=== PATIENT | female | born 1940 | race Caucasian/White ===

== ENCOUNTER → 2021-11-01 | Outpatient (CLI) | payer MEDICARE ==
[~2021-11-01] VITALS: Ht 152.4 cm; Wt 72.6 kg
[2021-11-01 09:21] LABS: BASOPHILS % (AUTO) 0.5 % (0.0-5.0); EOSINOPHILS % (AUTO) 2.1 % (0.0-8.0); HEMATOCRIT 41.4 % (36-48); LYMPHOCYTES % (AUTO) 14.8 % (21.0-51.0); MEAN CORPUSCULAR HEMOGLOBIN 27.9 pg (27.0-33.0); MEAN CORPUSCULAR HGB CONC 30.9 g/dL (32.0-36.0); MEAN CORPUSCULAR VOLUME 90.2 fL (79-99); MONOCYTES % (AUTO) 17.1 % (3.0-13.0); NEUTROPHILS % (AUTO) 63.4 % (40.0-77.0); PLATELET COUNT (AUTO) 392 K/uL (130-400); RED BLOOD CELL COUNT(AUTO) 4.59 MIL/uL (4.00-5.50); RED CELL DISTRIBUTION WIDTH 15.3 % (11.0-15.5); WHITE BLOOD COUNT (AUTO) 6.5 K/uL (4.8-10.8)
[2021-11-01 09:30] LABS: CREATININE 1.6 mg/dL (0.5-1.5); POTASSIUM 4.8 mmol/L (3.5-5.1)
[2021-11-01 09:34] LABS: INR 0.93 (0.85-1.15); PROTHROMBIN TIME 9.7 SEC (9.6-11.6)
[2021-11-01 10:06] LABS: B-TYPE NATRIURETIC PEPTIDE 60 pg/mL (0-100)
[2021-11-01 10:26] LABS: APPEARANCE,URINE CLEAR (CLEAR); BILIRUBIN,URINE NEGATIVE (NEGATIVE); COLOR,URINE YELLOW (YELLOW); GLUCOSE, URINE (UA) NEGATIVE (NEGATIVE); KETONES,URINE NEGATIVE (NEGATIVE); LEUKOCYTE ESTERASE ,URINE SMALL (NEGATIVE); NITRATE,URINE POSITIVE (NEGATIVE); OCCULT BLOOD,URINE NEGATIVE (NEGATIVE); PH,URINE 5.5 (5.0-8.0); PROTEIN,URINE NEGATIVE (NEGATIVE); UROBILINOGEN,URINE 0.2 mg/dL (0.2-1.0)
[2021-11-01 10:53] LABS: RBC,URINE None Seen /HPF (0-1); WBC,URINE 26-50 /HPF (0-1)
[2021-11-01 10:54] LABS: BACTERIA,URINE Moderate /HPF (None Seen)
[2021-11-01 15:44] VITALS: BP 137/60
== END | disposition home or self-care (01) ==
LOC: EDSTATUS 08:00 → DAH 10:00
PROVIDERS: ATTEND Internal Medicine Cardiovascular Disease
DX: Z01.818 Encounter for other preprocedural examination (principal); I25.10 Atherosclerotic heart disease of native coronary artery without angina pectoris; R07.9 Chest pain, unspecified
CPT/HCPCS: 36415; 71045; 80048; 81001; 83880; 85025; 85610; 85730; 87077; 87088; 87186; 93005

== ENCOUNTER 2021-11-16 07:52 | Day surgery (SDC) | payer MEDICARE ==
[2021-11-14 10:38] LABS: BASOPHILS % (AUTO) 0.7 % (0.0-5.0); EOSINOPHILS % (AUTO) 1.9 % (0.0-8.0); HEMATOCRIT 42.6 % (36-48); LYMPHOCYTES % (AUTO) 14.8 % (21.0-51.0); MEAN CORPUSCULAR HGB CONC 30.8 g/dL (32.0-36.0); MONOCYTES % (AUTO) 15.2 % (3.0-13.0); NEUTROPHILS % (AUTO) 65.3 % (40.0-77.0); PLATELET COUNT (AUTO) 384 K/uL (130-400); RED BLOOD CELL COUNT(AUTO) 4.68 MIL/uL (4.00-5.50); RED CELL DISTRIBUTION WIDTH 15.5 % (11.0-15.5); WHITE BLOOD COUNT (AUTO) 6.8 K/uL (4.8-10.8)
[2021-11-14 10:44] LABS: APPEARANCE,URINE CLEAR (CLEAR); BILIRUBIN,URINE NEGATIVE (NEGATIVE); COLOR,URINE YELLOW (YELLOW); GLUCOSE, URINE (UA) NEGATIVE (NEGATIVE); KETONES,URINE NEGATIVE (NEGATIVE); LEUKOCYTE ESTERASE ,URINE SMALL (NEGATIVE); NITRATE,URINE POSITIVE (NEGATIVE); OCCULT BLOOD,URINE NEGATIVE (NEGATIVE); PROTEIN,URINE NEGATIVE (NEGATIVE); UROBILINOGEN,URINE 0.2 mg/dL (0.2-1.0)
[2021-11-14 10:47] LABS: CREATININE 1.6 mg/dL (0.5-1.5); POTASSIUM 4.4 mmol/L (3.5-5.1)
[2021-11-14 10:50] LABS: INR 0.93 (0.85-1.15); PROTHROMBIN TIME 9.8 SEC (9.6-11.6)
[2021-11-14 10:51] LABS: PARTIAL THROMBOPLASTIN TIME 27.8 SEC (26.3-35.5)
[2021-11-14 11:10] LABS: RBC,URINE None Seen /HPF (0-1)
[2021-11-14 11:11] LABS: BACTERIA,URINE Many /HPF (None Seen)
[2021-11-14 12:23] LABS: B-TYPE NATRIURETIC PEPTIDE 45 pg/mL (0-100)
[2021-11-15 10:14] VITALS: BP 131/64
[~2021-11-16] VITALS: Ht 149.9 cm; Wt 73.6 kg
[2021-11-16] VITALS (8 sets, daily range): BP systolic 116–141; BP diastolic 47–73
[~2021-11-16 07:52] MED LIST: 0.9% NACL 500ML IV.SOLN 500 ML IV SCH; AEC81 PO; ALBU8.5H8 IH; ALLO100T PO; CHOL500051 PO; CRAN450T6 PO; FLUT8AER3 IH; GABA-529 PO; ISOS60TA77 PO; LOSA50TA64 PO; MAGN250T10 PO; METO-408 PO; NITR0.4T50 SL; OMEGA 3 PO; RED600CA6 PO; UBID100C45 PO; VITAMIN B12 PO; ZINC50TA64 PO
[2021-11-16] MEDS ORDERED: CEFTRIAXONE 1G VIAL IVP ONE (09:00)
[2021-11-16] MEDS ORDERED: CEFTRIAXONE 1G VIAL ONE (09:02)
[2021-11-16] MEDS ORDERED: NICARDIPINE 25MG INJ IV ONE (09:16)
[2021-11-16] MEDS ORDERED: NITROGLYCERIN 50MG VIAL ONE (09:17)
[2021-11-16] MEDS ORDERED: FENTANYL CITRATE PF 50 MCG/1 ML 2ML VIAL ONE (09:17)
[2021-11-16] MEDS ORDERED: IOHEXOL 350 MG/ML 100ML INFUS..BTL IV ONE (09:17)
[2021-11-16] MEDS ORDERED: MIDAZOLAM HCL 1 MG/ML 2ML VIAL ONE (09:17)
[2021-11-16] MEDS ORDERED: HEPARIN 10,000 UNIT/10ML (1,000 UNIT/ML) VIAL ONE (09:17)
[2021-11-16] MEDS ORDERED: IOHEXOL-350 50ML VIAL IV ONE (09:17)
[2021-11-16] MEDS ORDERED: LIDOCAINE HCL 1% 20 ML VIAL ONE (09:18)
[2021-11-16] MEDS ORDERED: ADENOSINE 6MG VIAL IV ONE (10:18)
[2021-11-16] MEDS ORDERED: DEXTROSE 50%-WATER 50 ML DISP.SYRIN IV PRN (11:00)
[2021-11-16] MEDS ORDERED: 0.9%NACL 1000ML 1,000 ML IV SCH (11:00)
[2021-11-16] MEDS ORDERED: GLUCAGON 1MG KIT 1 MG ML IM PRN (11:00)
[2021-11-16] MEDS ORDERED: DILT120C92 PO (12:04)
== END 2021-11-16 15:06 | disposition home or self-care (01) ==
LOC: DAH 07:52
PROVIDERS: ATTEND Internal Medicine Cardiovascular Disease
DX: I25.119 Atherosclerotic heart disease of native coronary artery with unspecified angina pectoris (principal); Q24.5 Malformation of coronary vessels; I25.2 Old myocardial infarction; I10 Essential (primary) hypertension; Z90.5 Acquired absence of kidney; Z79.899 Other long term (current) drug therapy; Z79.01 Long term (current) use of anticoagulants
CPT/HCPCS: 80048; 83880; 85025; 85610; 85730; 87088; 81001; 36415 ×2; 93458; 93571; 85347; 87077; 87186; C1769 ×2; C1894; C1887; J0153; J3010; J3490 ×2; J0696; J1644 ×2; J2250; Q9967; A4215; A4335; A4222; A4221; A4663; A4216; A4606; Q9965; A4223 ×3; A4554; 99156; 99157

== ENCOUNTER 2023-04-24 07:44 | Day surgery (SDC) | payer MEDICARE ==
[2023-04-24] VITALS (11 sets, daily range): BP systolic 97–127; BP diastolic 40–63; PULSE 56–71; RESP 14–15
[~2023-04-24 07:44] MED LIST changes: -0.9% NACL 500ML IV.SOLN 500 ML IV SCH; -CHOL500051 PO; -CRAN450T6 PO; +DABI150C PO; +DILT120C78 PO; +DONE5TAB33 PO; +ESCI-8 PO; +FAMO40TA7 PO; -FLUT8AER3 IH; -GABA-529 PO; +HYDR-3421 PO; +HYDR500C2 PO; +LOSA25TA41 PO; -LOSA50TA64 PO; -MAGN250T10 PO; -METO-408 PO; -VITAMIN B12 PO; -ZINC50TA64 PO
[2023-04-24 08:15] LABS: HEMATOCRIT 25.7 % (36-48); MEAN CORPUSCULAR HEMOGLOBIN 30.5 pg (27.0-33.0); MEAN CORPUSCULAR HGB CONC 33.5 g/dL (32.0-36.0); MEAN CORPUSCULAR VOLUME 91.1 fL (79-99); PLATELET COUNT (AUTO) 377 K/uL (130-400); RED BLOOD CELL COUNT(AUTO) 2.82 MIL/uL (4.00-5.50); RED CELL DISTRIBUTION WIDTH 14.1 % (11.0-15.5); WHITE BLOOD COUNT (AUTO) 4.8 K/uL (4.8-10.8)
[2023-04-24 08:21] LABS: CREATININE 1.6 mg/dL (0.5-1.5); POTASSIUM 4.2 mmol/L (3.5-5.1)
[2023-04-24 08:23] LABS: APPEARANCE,URINE CLEAR (CLEAR); BILIRUBIN,URINE NEGATIVE (NEGATIVE); COLOR,URINE LIGHT-YELLOW (YELLOW); GLUCOSE, URINE (UA) NEGATIVE (NEGATIVE); KETONES,URINE NEGATIVE (NEGATIVE); LEUKOCYTE ESTERASE ,URINE 75 Leu/uL (NEGATIVE); NITRATE,URINE NEGATIVE (NEGATIVE); OCCULT BLOOD,URINE SMALL (NEGATIVE); PROTEIN,URINE NEGATIVE (NEGATIVE); UROBILINOGEN,URINE 0.2 mg/dL (0.2-1.0)
[2023-04-24 08:25] LABS: INR 1.07 (0.85-1.15); PROTHROMBIN TIME 12.4 SEC (9.6-11.6)
[2023-04-24 08:26] LABS: PARTIAL THROMBOPLASTIN TIME 47.1 SEC (26.3-35.5)
[2023-04-24] MEDS ORDERED: 0.9%NACL 1000ML 1,000 ML IV ONE (08:27)
[2023-04-24 08:32] LABS: ADD UA MICROSCOPIC YES
[2023-04-24 08:33] LABS: BACTERIA,URINE RARE /HPF (None Seen); MUCUS,URINE RARE LPF (None Seen); SQUAMOUS EPITHELIAL CELL,UR RARE /HPF (0-2)
[2023-04-24 08:37] LABS: B-TYPE NATRIURETIC PEPTIDE 82 pg/mL (0-100)
[2023-04-24 08:44] LABS: BAND NEUTROPHILS % (MANUAL) 1 % (0-2); LYMPHOCYTES % (MANUAL) 26 % (22-44); MAN.DIFF COMMENT-IMPRESSION MANUAL DIFFERENTIAL; MONOCYTES % (MANUAL) 5 % (2-9); PLATELET MORPHOLOGY COMMENT ADEQUATE; SEGMENTED NEUTROPHILS % 68 % (40-70); TOTAL CELLS COUNTED 100; WBC MORPHOLOGY CONSISTENT W/DIFF
[2023-04-24] MEDS ORDERED: IODIXANOL 320 MG/ML 100 ML VIAL ONE (09:47)
[2023-04-24] MEDS ORDERED: NITROGLYCERIN 50MG VIAL ONE (09:47)
[2023-04-24] MEDS ORDERED: LIDOCAINE HCL 400MG/20ML VIAL ONE (09:47)
[2023-04-24] MEDS ORDERED: HEPARIN 10,000 UNIT/10ML (1,000 UNIT/ML) VIAL ONE (09:48)
[2023-04-24] MEDS ORDERED: MIDAZOLAM HCL 1 MG/ML 2ML VIAL ONE ×2 (10:40→10:43)
[2023-04-24] MEDS ORDERED: FENTANYL CITRATE PF 50 MCG/1 ML 2ML VIAL ONE (10:40)
[2023-04-24] MEDS ORDERED: GLUCAGON 1MG KIT 1 MG ML IM PRN (12:00)
[2023-04-24] MEDS ORDERED: DEXTROSE 50%-WATER 50 ML DISP.SYRIN IV PRN (12:00)
[2023-04-24] MEDS ORDERED: 0.9%NACL 1000ML 1,000 ML IV SCH (12:00)
== END 2023-04-24 15:35 | disposition home or self-care (01) ==
LOC: DAH 07:44
PROVIDERS: ATTEND Student in an Organized Health Care Education/Training Program
DX: I82.4Z1 Acute embolism and thrombosis of unspecified deep veins of right distal lower extremity (principal); I70.92 Chronic total occlusion of artery of the extremities; I25.10 Atherosclerotic heart disease of native coronary artery without angina pectoris; I25.2 Old myocardial infarction; I10 Essential (primary) hypertension; D64.9 Anemia, unspecified; E78.5 Hyperlipidemia, unspecified; R42 Dizziness and giddiness; J45.909 Unspecified asthma, uncomplicated; Z79.01 Long term (current) use of anticoagulants; Z79.899 Other long term (current) drug therapy; Z90.710 Acquired absence of both cervix and uterus; Z98.890 Other specified postprocedural states; Z90.5 Acquired absence of kidney; Z87.891 Personal history of nicotine dependence
CPT/HCPCS: 37187; 80048; 83880; 85025; 85610; 85730; 87088; 81001; 36415; 71045; 75820; 36005; 93005; 75825; C1769 ×3; C1894 ×2; J3010; J3490 ×2; J7030; J1644 ×2; J2250 ×2; Q9967; A4215; A4222; A4221; A4663; A4216; A4606; A4520; A4223 ×3; A4554; 96360; 96361; 99156; 99157